=== PATIENT | female | born 1975 | race Caucasian/White ===

== ENCOUNTER 2019-10-28 15:31 | Outpatient (CLI) | payer BC, OTHER ==
[2019-10-28] MEDS ORDERED: trulicity INJ (16:04)
[2019-10-28] MEDS ORDERED: RIVA15TA PO (16:04)
[2019-10-28] MEDS ORDERED: INSU100V35 SC (16:04)
[2019-10-28] MEDS ORDERED: QUET25TA5 PO (16:17)
[2019-10-28] MEDS ORDERED: hydrochlorothiazide PO (16:18)
[2019-10-28 16:44] LABS: ALANINE AMINOTRANSFERASE 14 U/L (12-78); ALBUMIN 3.1 g/dL (3.4-5.0); ANION GAP 7 mmol/L (5-15); CALCIUM 8.8 mg/dL (8.5-10.1); CHLORIDE 105 mmol/L (98-107); CREATININE 0.68 mg/dL (0.55-1.02)
[2019-10-28 16:47] LABS: ALKALINE PHOSPHATASE 82 U/L (45-117); BILIRUBIN,TOTAL 0.4 mg/dL (0.2-1.0); TOTAL PROTEIN 7.2 g/dL (6.4-8.2)
== END 2019-10-28 23:59 | disposition home or self-care (01) ==
LOC: STAR 15:31
PROVIDERS: ATTEND Internal Medicine
DX: Z01.818 Encounter for other preprocedural examination (principal); Z11.59 Encounter for screening for other viral diseases
CPT/HCPCS: 36415; 80053; 93005; U0001

== ENCOUNTER 2019-11-03 06:32 | Day surgery (SDC) | payer BC, OTHER ==
[~2019-11-03] VITALS: Ht 162.6 cm; Wt 76.0 kg
[~2019-11-03 06:32] MED LIST: INSU100V35 SC; QUET25TA5 PO; RIVA15TA PO; hydrochlorothiazide PO; trulicity INJ
[2019-11-03] MEDS ORDERED: CHLORHEXIDINE 15 ML UDC MM STA (07:26)
[2019-11-03] MEDS ORDERED: LACTATED RINGERS 1,000 ML IV SCH (07:26)
[2019-11-03] MEDS ORDERED: CHLORHEXIDINE 15 ML UDC ONE (07:29)
[2019-11-03] MEDS ORDERED: PROPOFOL 10 MG/ML, 20ML ONE ×3 (08:57→09:20)
[2019-11-03] MEDS ORDERED: LIDOCAINE-MPF 2% ,5ML ONE ×2 (08:57)
[2019-11-03] MEDS ORDERED: FENTANYL PF 100 MCG/2ML ONE (08:58)
== END 2019-11-03 11:15 | disposition home or self-care (01) ==
LOC: OUT 06:32
PROVIDERS: ATTEND Internal Medicine
DX: K31.7 Polyp of stomach and duodenum (principal); D21.4 Benign neoplasm of connective and other soft tissue of abdomen; D68.51 Activated protein C resistance; E11.9 Type 2 diabetes mellitus without complications; I10 Essential (primary) hypertension; Z79.4 Long term (current) use of insulin; Z79.899 Other long term (current) drug therapy; Z86.718 Personal history of other venous thrombosis and embolism
CPT/HCPCS: 43236; 43239; 43251; 43259; 81025; 82962; 88305; J2704; J3010; J7120